=== PATIENT | male | born 1955 | race Native Hawaiian/Other Pacific Islander ===

== ENCOUNTER 2020-07-13 10:18 | Emergency (ER) | payer OTHER ==
[~2020-07-13] VITALS: Ht 182.9 cm; Wt 99.8 kg
[2020-07-13 10:32] VITALS: TEMP 98.4
[2020-07-13 11:28] VITALS: BP 151/64
== END 2020-07-13 11:29 | disposition home or self-care (01) ==
LOC: ED 10:18
DX: J20.9 Acute bronchitis, unspecified (principal); Z20.828 Contact with and (suspected) exposure to other viral communicable diseases; F17.210 Nicotine dependence, cigarettes, uncomplicated
CPT/HCPCS: 87502; 87635; 99283; U0003

== ENCOUNTER 2021-02-07 10:20 | Outpatient (CLI) | payer OTHER ==
[2021-02-07 10:41] LABS: PLATELET COUNT 274 K/uL (142-355)
[2021-02-07 11:04] LABS: POTASSIUM 4.1 mmol/L (3.6-5.2)
== END 2021-02-07 21:35 | disposition home or self-care (01) ==
LOC: LABW 10:20
PROVIDERS: ATTEND Internal Medicine
DX: N18.32 Chronic kidney disease, stage 3b (principal); R53.83 Other fatigue
CPT/HCPCS: 36415; 80053; 81000; 82043; 82330; 82570; 82607; 82728; 82746; 82747; 83036; 83540; 83550; 83735; 83970; 84100; 84155; 84439; 84443; 85027; 85652; 86038; 86140